=== PATIENT | female | born 1945 | race Hispanic/Latino ===

== ENCOUNTER 2024-10-03 10:34 | Emergency (ER) | payer OTHER ==
[2024-10-03 11:13] LABS: Absolute Basophils 0.1 K/uL (0-0.5); Absolute Eosinophils 0.1 K/uL (0-0.5); Absolute Monocytes 0.4 K/uL (0.1-1.3); Absolute Neutrophil 7.1 K/uL (1.8-8.0); Basophils % 1.2 % (0-1.3); Eosinophils % 0.7 % (0-4.4); Hematocrit 36.5 % (36.0-45.0); Hemoglobin 12.5 g/dL (12.0-15.0); Lymphocytes % 11.1 % (15.3-44.8); MCH 30.8 pg (27.0-35.0); MCHC 34.4 g/dL (32.0-36.0); MCV 89.7 fL (80-100); MPV 8.1 fL (7.6-11.3); Monocytes % 4.5 % (3.3-12.3); Neutrophils % 82.5 % (41.7-73.7); Platelets 245 thou/uL (152-406); RBC Red Blood Cell Count 4.07 M/uL (3.86-4.86); Red Cell Distribution Width 12.9 % (12.1-15.2)
[2024-10-03 11:20] LABS: D-Dimer 0.568 FEUug/mL (0-0.500); PT Prothrombin Time 12.1 SECONDS (9.4-12.5); Protime INR 1.08
[2024-10-03 11:30] LABS: Anion Gap 10.6 mEq/L (5.0-15.0); Potassium 3.6 mEq/L (3.5-5.1); Troponin High Sensitivity 9.6 pg/mL (<58.9)
--- NOTE | 2024-10-03 11:54 | RAD REPORT ---
EXAMINATION: ONE VIEW CHEST XR CLINICAL INDICATION: Female, 79 years old.,CHEST PAIN TECHNIQUE: Frontal chest projection is submitted. Examination is limited by patient positioning and t echnique. COMPARISON: No prior exam. FINDINGS: The lungs are well inflated and clear. No pneumothorax or sizable effusion. The heart is normal in s ize. Mediastinal contours are unremarkable. IMPRESSION: No acute intrathoracic abnormalities.
--- NOTE | 2024-10-03 12:16 | EDPHYS ---
Physician Documentation [facility] Name: Yumiko Yang Age: 79 yrs Sex: Female : 1945 Arrival Date: 10/03/2024 Time: 10:34 Bed 18 Private MD: ED Physician Miguel Brothers HPI: 10/03 10:54 This 79 yrs old Female presents to ER via Ambulatory with complaints of Chest bo1 Pressure, Blood Pressure Problem. 19:40 The patient or guardian reports chest pain that is located primarily in the anterior bo1 chest wall, left. Onset: suddenly, this morning, \\T\\ 2 am after text from daughter was received of possible OD by taking Xanax. The pain does not radiate. Associated signs and symptoms: Pertinent positives: dizziness, Pt was upset and anxious since 2 am called her son and daughter in law. The chest pain is described as a pressure. Duration: The patient or guardian reports a single episode, that is now resolved. 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 Pt has moved to the local area from [facility] and now has to deal with the daughter in [place]. Historical: - Allergies: 10:53 No Known Allergies; hb - Home Meds: 10:53 losartan-hydrochlorothiazide oral [Active]; unknown sleep med [Active]; hb - PMHx: 10:53 Hypertension; hb - PSHx: 10:53 None; hb - Immunization history:: Adult Immunizations up to date. - Infectious Disease History:: Denies. - Social history:: Smoking status: Patient denies any tobacco usage or history of. ROS: 11:19 Constitutional: Negative for fever, chills, and weight loss bo1 11:19 Cardiovascular: Positive for chest pain, 11:19 Respiratory: Negative for cough, shortness of breath, 11:19 Abdomen/GI: Negative for abdominal pain, nausea and vomiting, diarrhea, bo1 11:19 MS/extremity: Negative for pain, swelling, 11:19 Skin: Negative for discoloration, rash, Exam: 10:54 ECG was reviewed by the Attending Physician. bo1 19:37 Constitutional: This is a well developed, well nourished patient who is awake, alert, bo1 and in no acute distress. 19:37 Constitutional: The patient appears alert, awake, comfortable, Pt is "upset" with her daughter calling her at 2 am and of the constant round the clock care needed of her own son and spouse with dementia 19:37 Head/face: Exam is negative for acute changes, erythema, swelling, tenderness, 19:37 Eyes: Sclera: no appreciated abnormality, 19:37 Neck: External neck: is normal, no acute changes, 19:37 Chest/axilla: Inspection: normal, no acute changes, 19:37 Cardiovascular: Exam negative for Rate: normal, Rhythm: regular, Pulses: no pulse deficits are appreciated, 19:37 Respiratory: the patient does not display signs of respiratory distress, Respirations: normal, no acute changes, Breath sounds: are clear throughout, 19:37 Abdomen/GI: Inspection: abdomen appears normal, distension, is not seen, 19:37 Back: CVA tenderness, is absent, 19:37 Musculoskeletal/extremity: Extremities: all appear grossly normal, with no appreciated pain with palpation, 19:37 Skin: Appearance: Color: normal in color, Temperature: normal temperature, 19:37 Neuro: Orientation: is normal, appropriate for stated age, Mentation: is normal, appropriate for stated age, Memory: is normal, appropriate for stated age, 19:37 Psych: Behavior/mood is anxious, depressed, Vital Signs: 10:51 BP 142 / 78; Pulse 72; Resp 16; Temp 97.8(O); Pulse Ox 97% on R/A; Weight 63.5 kg; hb Height 5 ft. 2 in. ; Pain 7/10; 11:41 BP 130 / 77; Pulse 77; Resp 17; Pulse Ox 99% on R/A; rs5 12:28 BP 135 / 81; Pulse 74; Resp 17; Pulse Ox 99% on R/A; rs5 10:51 Body Mass Index 25.61 (63.50 kg, 157.48 cm) hb 10:51 Pain Scale: Adult hb MDM: 10:51 Medical Screening Exam initiated bo1 19:36 Differential diagnosis: abnormal EKG, anxiety, coronary artery disease Stress reaction. bo1 Management of patient was discussed with the following: Pt and family - daughter in law. ED course: Hospitalization not indicated, pt feels comfortable to go home. 19:39 Data reviewed: vital signs, lab test result(s), EKG. bo1 19:40 Data reviewed: radiologic studies, plain films. bo1 10/03 10:54 Order name: Basic Metabolic Panel; Complete Time: 11:37 bo 10/03 10:54 Order name: CBC with Diff; Complete Time: 11:37 bo10/03 10:54 Order name: D-Dimer; Complete Time: 11:37 bo10/03 10:54 Order name: PT-INR; Complete Time: 11:37 bo 10/03 10:54 Order name: Troponin HS; Complete Time: 11:37 bo 10/03 10:54 Order name: XRAY Chest (1 view); Complete Time: 12:17 bo 10/03 10:54 Order name: EKG; Complete Time: 10:54 bo10/03 10:54 Order name: Cardiac monitoring; Complete Time: 10:55 bo10/03 10:54 Order name: EKG - Nurse/Tech; Complete Time: 10:55 bo 10/03 10:54 Order name: IV Saline Lock; Complete Time: 11:33 [facility] 10/03 10:54 Order name: Labs collected and sent; Complete Time: 11:33 bo10/03 10:54 Order name: O2 Per Protocol; Complete Time: 11:33 bo 10/03 10:54 Order name: O2 Sat Monitoring; Complete Time: 11:33 bo EC:54 Rate is 73 beats/min. Rhythm is regular. QRS Foley is Normal. SD interval is normal. QRS bo1 interval is normal. QT interval is normal. No Q waves. T waves are Normal. No ST changes noted. Clinical impression: Normal ECG. Interpreted by me. Reviewed by me. Administered Medications: No medications were administered Disposition Summary: 10/03/24 12:15 Discharge Ordered Notes: Location: Home bo1 Problem: new bo1 Symptoms: are resolved bo1 Condition: Stable bo1 Diagnosis - Chest pain, unspecified bo1 - Acute stress reaction bo1 Followup: bo1 - With: Private Physician - When: Upon discharge from the Emergency Department - Reason: Recheck today's complaints, Continuance of care Discharge Instructions: - Discharge Summary Sheet bo1 - Nonspecific Chest Pain, Adult bo1 - Stress, Adult bo1 Forms: - Medication Reconciliation Form bo1 - Antibiotic Education bo1 - Prescription Opioid Use bo1 - Patient Portal Instructions bo1 - Leadership Thank You Letter bo1 Signatures: Ailin Vargas, Miguel Castro RN, MD MD bo1
--- NOTE | 2024-10-03 12:16 | ER ---
Nurse's Notes [facility] Name: Yumiko Yang Age: 79 yrs Sex: Female : 1945 Arrival Date: 10/03/2024 Time: 10:34 Bed 18 Private MD: Diagnosis: Chest pain, unspecified;Acute stress reaction Presentation: 10/03 10:51 Chief complaint: Chest pressure that radiates to right arm and neck since last night. hb Coronavirus screen: At this time, the client does not indicate any symptoms associated with coronavirus-19. Ebola Screen: No symptoms or risks identified at this time. Initial Sepsis Screen: Does the patient meet any 2 criteria? No. Patient's initial sepsis screen is negative. Does the patient have a suspected source of infection? No. Patient's initial sepsis screen is negative. Risk Assessment: Do you want to hurt yourself or someone else? Patient reports no desire to harm self or others. Onset of symptoms was October 03, 2024. 10:51 Method Of Arrival: Ambulatory hb 10:51 Acuity: KVNG 2 hb Historical: - Allergies: 10:53 No Known Allergies; hb - Home Meds: 10:53 losartan-hydrochlorothiazide oral [Active]; unknown sleep med [Active]; hb - PMHx: 10:53 Hypertension; hb - PSHx: 10:53 None; hb - Immunization history:: Adult Immunizations up to date. - Infectious Disease History:: Denies. - Social history:: Smoking status: Patient denies any tobacco usage or history of. Screenin:40 [facility] ED Fall Risk Assessment (Adult) History of falling in the last 3 months, rs5 including since admission No falls in past 3 months (0 pts) Confusion or Disorientation No (0 pts) Intoxicated or Sedated No (0 pts) Impaired Gait No (0 pts) Mobility Assist Device Used No (0 pt) Altered Elimination No (0 pt) Score/Fall Risk Level 0 - 2 = Low Risk Oriented to surroundings, Maintained a safe environment. Abuse screen: Denies threats or abuse. Nutritional screening: No deficits noted. Tuberculosis screening: No symptoms or risk factors identified. Assessment: 10:40 General: Appears in no apparent distress. uncomfortable, Behavior is calm, cooperative. rs5 Pain: Complains of pain in chest Pain radiates to right arm Pain currently is 3 out of 10 on a pain scale. Quality of pain is described as aching, Pain began 1 day ago. Is continuous. Neuro: Level of Consciousness is awake, alert, obeys commands, Oriented to person, place, time, situation. Cardiovascular: Patient's skin is warm and dry. Respiratory: Airway is patent Respiratory effort is even, unlabored, Respiratory pattern is symmetrical. GI: Abdomen is round non-distended. : No signs and/or symptoms were reported regarding the genitourinary system. 10:40 EENT: No signs and/or symptoms were reported regarding the EENT system. Derm: Skin is rs5 intact, Skin is pink, warm \T\ dry. Musculoskeletal: Range of motion: intact in all extremities. 11:35 Reassessment: Patient and/or family updated on plan of care and expected duration. Pain rs5 level reassessed. Patient is alert, oriented x 3, equal unlabored respirations, skin warm/dry/pink. 12:28 Reassessment: No changes from previously documented assessment. rs5 Vital Signs: 10:51 BP 142 / 78; Pulse 72; Resp 16; Temp 97.8(O); Pulse Ox 97% on R/A; Weight 63.5 kg; hb Height 5 ft. 2 in. ; Pain 7/10; 11:41 BP 130 / 77; Pulse 77; Resp 17; Pulse Ox 99% on R/A; rs5 12:28 BP 135 / 81; Pulse 74; Resp 17; Pulse Ox 99% on R/A; rs5 10:51 Body Mass Index 25.61 (63.50 kg, 157.48 cm) hb 10:51 Pain Scale: Adult hb ED Course: 10:37 Patient arrived in ED. ra3 10:40 Patient has correct armband on for positive identification. Placed in gown. Bed in low rs5 position. Call light in reach. Side rails up X2. 10:40 No provider procedures requiring assistance completed. Patient maintains SpO2 rs5 saturation greater than 95% on room air. 10:45 EKG done, by ED staff, reviewed by Miguel Brothers MD. hb 10:45 Inserted saline lock: 20 gauge in right antecubital area, using aseptic technique. rs5 Blood collected. Flushed with 10 mL NS. 10:47 Campoverde, Shaggy, RN is Primary Nurse. rs5 10:51 Miguel Brothers MD is Attending Physician. bo1 10:53 Triage completed. hb 10:55 Arm band placed on. hb 10:55 Client placed on continuous cardiac and pulse oximetry monitoring. NIBP monitoring hb applied. tack picker on. Pulse ox on. NIBP on. 11:42 XRAY Chest (1 view) In Process Unspecified. EDMS 12:29 IV discontinued, intact, bleeding controlled, No redness/swelling at site. Pressure hb dressing applied. 12:30 Provided Education on: follow up. hb Administered Medications: No medications were administered Medication: 12:30 VIS not applicable for this client. hb Outcome: 12:15 Discharge ordered by . bo1 12:29 Discharged to home ambulatory, with family, hb 12:29 Condition: stable 12:29 Discharge instructions given to patient, family, Instructed on discharge instructions, follow up and referral plans. medication usage, Demonstrated understanding of instructions, follow-up care, medications, 12:30 Patient left the ED. hb Signatures: Dispatcher [employer] EDWI Ailin Brock RN RN Shaggy Campoverde RN RN rs5 Aubree Dobbs ra3 Miguel Brothers MD MD bo1
[2024-10-03 13:00] VITALS: TEMP 97.8
[2024-10-03 13:06] VITALS: O2SAT 99
[2024-10-03 13:12] VITALS: BP 135/81
--- NOTE | 2024-10-05 12:02 | EKG ---
Test Date: 2024-10-03 Test Time: 10:45:52 Accreditation Coordinator: HB MEASUREMENT RESULTS: Intervals: Rate: 73 UT: 172 QRSD: 80 QT: 374 QTc: 412 [place]: P: 6 UT: 172 QRS: 3 T: 73 INTERPRETIVE STATEMENTS: Normal sinus rhythm Nonspecific T wave abnormality Abnormal ECG No previous ECG available for comparison Electronically Signed On 10-05-24 12:00:59 DENTAL NURSE by Roderick Yoon
== END 2024-10-03 12:30 | disposition home or self-care (01) ==
LOC: ER 10:34
DX: R07.89 Other chest pain (principal); F43.0 Acute stress reaction; I10 Essential (primary) hypertension
CPT/HCPCS: 36415; 71045; 80048; 84484; 85025; 85379; 85610; 93005